=== PATIENT | female | born 1960 | race Caucasian/White ===

== ENCOUNTER → 2021-07-08 10:23 | Outpatient (CLI) | payer OTHER, SELFPAY | PROVIDERS: Visit Provider Nurse Practitioner Family | DX: N34.3 Urethral syndrome, unspecified (principal); N89.8 Other specified noninflammatory disorders of vagina | CPT/HCPCS: 87086; 87210 ==

== ENCOUNTER → 2021-12-18 08:08 | Outpatient (CLI) | payer OTHER, SELFPAY ==
--- NOTE | 2021-12-18 08:10 | DI.US.S_ITS ---
PROCEDURE: US PERIPH VENOUS LOW EXTREM RT INDICATIONS: discoloration, calf pain, h/o fx, r/o DVT TECHNIQUE: Real-time imaging, as well as color and pulse Doppler interrogation, were performed of the lower extremity deep veins from the inguinal ligament to the popliteal fossa. COMPARISON: None. FINDINGS: The common femoral, femoral and popliteal veins are normally compressible, and free of intraluminal thrombus. Color and pulse Doppler demonstrate normal phasic intraluminal flow. There is normal augmentation response to distal compression maneuver. IMPRESSION: No evidence of deep vein thrombosis involving the right lower extremity. Dictated by: Christie Hsu MD, PhD on 12/18/2021 at 9:00 Approved by: Christie Hsu MD, PhD on 12/18/2021 at 9:00
== END ==
PROVIDERS: Referring Provider Physician Assistant; Visit Provider Physician Assistant
DX: S82.141D Displaced bicondylar fracture of right tibia, subsequent encounter for closed fracture with routine healing (principal); M79.661 Pain in right lower leg
CPT/HCPCS: 93971

== ENCOUNTER → 2022-01-15 12:22 | Outpatient (CLI) | payer OTHER, SELFPAY ==
--- NOTE | 2022-01-15 12:24 | DI.RAD.S_ITS ---
PROCEDURE: XR KNEE RT 3V INDICATIONS: fracture f/u TECHNIQUE: 3 views of the knee were acquired. COMPARISON: None. FINDINGS: Bones: No fractures or dislocations. No suspicious bony lesions. Mild tricompartmental periarticular osteophyte formation. Soft tissues: No joint effusion. No suspicious soft tissue calcifications. IMPRESSION: Osteoarthritis. No acute fracture. No osseous lesion. If symptoms and/or clinical suspicion for pathology persist, further assessment with repeat, or advanced imaging (e.g., CT, MRI, or bone scan) may be helpful for further assessment. Dictated by: Rylie Fuentes M.D. on 01/15/2022 at 15:26 Transcribed by: SHAAN on 01/15/2022 at 15:27 Approved by: Rylie Fuentes M.D. on 01/15/2022 at 16:48
== END ==
PROVIDERS: Referring Provider Physician Assistant; Visit Provider Physician Assistant
DX: S89.91XA Unspecified injury of right lower leg, initial encounter (principal); M17.11 Unilateral primary osteoarthritis, right knee; X58.XXXA Exposure to other specified factors, initial encounter
CPT/HCPCS: 73562

== ENCOUNTER → 2022-08-22 09:05 | Outpatient (CLI) | payer OTHER, SELFPAY ==
--- NOTE | 2022-08-22 09:08 | DI.RAD.S_ITS ---
PROCEDURE: XR ANKLE RT MIN 3V INDICATIONS: ankle pain TECHNIQUE: 3 views of the ankle were acquired. COMPARISON: None. FINDINGS: Bones: No fractures or dislocations. Ankle mortise is normally aligned. No suspicious bony lesions. Moderate periarticular osteophyte formation at the tibiotalar joint. Soft tissues: No tibiotalar joint effusion. Achilles tendon appears normal. IMPRESSION: 1. Osteoarthritis. 2. No acute fracture. No osseous lesion. If symptoms and/or clinical suspicion for pathology persist, further assessment with repeat, or advanced imaging (e.g., CT, MRI, or bone scan) may be helpful for further assessment. Dictated by: Rylie Fuentes M.D. on 08/22/2022 at 10:40 Transcribed by: SHAAN on 08/22/2022 at 10:40 Approved by: Rylie Fuentes M.D. on 08/22/2022 at 16:21
[2022-08-22 10:11] LABS: Add Manual Diff / Slide Review NO; Basophils Absolute Auto 100 /uL (0-100); Eosinophils Absolute Auto 200 /uL (0-450); Eosinophils Percent Auto 3.8 % (2-4); Hematocrit 38.3 % (36-46); Hemoglobin 13.2 g/dL (12.0-16.0); Lymphocytes Absolute Auto 1200 /uL (1100-4500); Lymphocytes Percent Auto 18.6 % (25-40); Mean Corpuscular HGB Conc 34.5 % (30-36); Monocytes Absolute Auto 400 /uL (0-900); Monocytes Percent Auto 6.6 % (3-14); Neutrophils Absolute Auto 4500 /uL (1500-7000); Platelet Count 206 X10^3/uL (150-400); White Blood Cell Count 6.4 X10^3/uL (4.5-11.0)
[2022-08-22 10:19] LABS: Hemoglobin A1C% w Est Avg Glu 7.2 % (4.0-6.0)
[2022-08-22 10:53] LABS: Alanine Aminotransferase 42 IU/L (<35); Albumin 3.9 g/dL (3.5-5.0); Albumin Globulin Ratio 1.4 (1.0-2.8); Alkaline Phosphatase 81 U/L (38-126); Aspartate Aminotransferase 29 IU/L (14-36); BUN Creatinine Ratio 31.3 (6-22); Bilirubin Total 0.3 mg/dL (0.2-1.3); Blood Urea Nitrogen 21 mg/dL (7-17); Calcium 9.2 mg/dL (8.4-10.2); Carbon Dioxide 25 mmol/L (22-32); Chloride 104 mmol/L (98-107); Cholesterol 169 mg/dL (140-199); Estimated Glomerular Filt Rate > 60 mL/min (>60); Globulin 2.7 g/dL (1.7-4.1); Glucose 169 mg/dL (80-110); HDL Cholesterol 49 mg/dL (40-60); HEMOLYSIS < 15 (0-50); LDL Cholesterol Calculated 96 mg/dL (<100); Potassium 4.6 mmol/L (3.4-5.1); Sodium 137 mmol/L (137-145); Total Protein 6.6 g/dL (6.3-8.2); Triglycerides 118 mg/dL (35-150)
[2022-08-22 10:56] LABS: Creatinine Urine Random 112.9 mg/dL
[2022-08-22 11:05] LABS: Microalbumi Creatinin Ratio Ur 5.3 ug/mg CR (<30); Microalbumin Urine Random 0.6 mg/dL (0-1.6)
[2022-08-22 11:17] LABS: TSH w/ Reflex to FT4 1.84 uIU/mL (0.47-4.68)
== END ==
PROVIDERS: PCP Family Medicine; Referring Provider Family Medicine; Visit Provider Family Medicine
DX: M19.071 Primary osteoarthritis, right ankle and foot (principal); M25.571 Pain in right ankle and joints of right foot; E11.8 Type 2 diabetes mellitus with unspecified complications
CPT/HCPCS: 36415; 73610; 80053; 80061; 82043; 82570; 83036; 84443; 85025

== ENCOUNTER → 2022-10-09 10:35 | Outpatient (CLI) | payer OTHER, SELFPAY | PROVIDERS: PCP Family Medicine; Visit Provider Nurse Practitioner Family | DX: J02.9 Acute pharyngitis, unspecified (principal) | CPT/HCPCS: 87070; 87077; 87147 ==

== ENCOUNTER → 2022-10-16 18:02 | Outpatient (CLI) | payer OTHER, SELFPAY | PROVIDERS: PCP Family Medicine; Visit Provider Student in an Organized Health Care Education/Training Program | DX: R30.0 Dysuria (principal) | CPT/HCPCS: 87086; 87210 ==

== ENCOUNTER → 2023-01-29 12:34 | Outpatient (CLI) | payer OTHER, SELFPAY ==
--- NOTE | 2023-01-29 12:35 | DI.MG.S_ITS ---
BILATERAL DIGITAL SCREENING MAMMOGRAM 3D/2D WITH CAD: 01/29/2023 CLINICAL: Baseline exam. Routine screening. No prior exams were available for comparison. There are scattered areas of fibroglandular density in both breasts (category b / 25%-50% glandular tissue). Current study was also evaluated with a Computer Aided Detection (CAD) system. No significant masses, calcifications, or other findings are seen in either breast. IMPRESSION: NEGATIVE There is no mammographic evidence of malignancy. A 1 year screening mammogram is recommended. Based on the Tyrer Cuzick model (a risk assessment model) the patient's lifetime risk is 7.1% and her 10 year risk is 3.2%. According to the ACR, ACS, and NCCN guidelines, an annual breast MRI exam along with mammogram is recommended if the patient's lifetime risk is 20% or greater. This exam was interpreted at Station ID: [id number]. NOTE: For mammograms, a report in lay terms will be sent to the patient. Approximately 15% of breast malignancies will not be visualized mammographically. In the management of a palpable breast mass, a negative mammogram must not discourage biopsy of a clinically suspicious lesion. Electronically Signed By: Leni lewis/ghassan:01/29/2023 14:45:38 letter sent: Normal Exam ACR BI-RADS Category 1: Negative [id number]
== END ==
PROVIDERS: PCP Registered Nurse; Referring Provider Physician Assistant; Visit Provider Physician Assistant
DX: Z12.31 Encounter for screening mammogram for malignant neoplasm of breast (principal)
CPT/HCPCS: 77063; 77067

== ENCOUNTER → 2023-07-29 14:49 | Outpatient (CLI) | payer OTHER, SELFPAY ==
[2023-07-29 15:37] LABS: Influenza A - CEPHEID Flu A NEGATIVE (NEGATIVE); Influenza B - CEPHEID Flu B NEGATIVE (NEGATIVE); Respiratory Syncytial Virus Negative (Negative)
[2023-07-29 15:40] LABS: COVID-19 CEPHEID 4-PLEX PCR Negative (Negative)
== END ==
PROVIDERS: PCP Registered Nurse; Visit Provider Nurse Practitioner Family
DX: J02.9 Acute pharyngitis, unspecified (principal); R05.9 Cough, unspecified
CPT/HCPCS: 0241U; 87070; 87147

== ENCOUNTER → 2024-07-06 11:11 | Outpatient (ROUT) | payer OTHER, SELFPAY ==
[2024-07-06 11:54] LABS: COVID-19 CEPHEID 4-PLEX PCR Negative (Negative); Influenza A - CEPHEID Flu A NEGATIVE (NEGATIVE); Influenza B - CEPHEID Flu B NEGATIVE (NEGATIVE); Respiratory Syncytial Virus Negative (Negative)
== END ==
PROVIDERS: PCP Family Medicine; Visit Provider Family Medicine
DX: R50.9 Fever, unspecified (principal); R05.1 Acute cough
CPT/HCPCS: 0241U

== ENCOUNTER → 2024-07-20 15:45 | Outpatient (CLI) | payer OTHER, SELFPAY ==
--- NOTE | 2024-07-20 16:08 | DIAB.MNT ---
Initial Diabetes Medical Nutrition Therapy Assessment Name: Noreen Smith Date: 07/20/24 Time: 405-5 Dx: Type II Diabetes Provider: Vance Noreen presents for initial DM visit. PMH of DM since 2011. FH of DM with father, both sisters. Sisters with macular degeneration. UTD eye appt. No previous MNT or DM education. Per provider notes, Noreen is trying to avoid additional DM meds. Insurance will not cover Semaglutide, does not want to try other meds. Wants to work on lifestyle. Notable in EMR 2010 pancreatitis. Gained wt around age 50 via emotional eating per report. Trying to take Metformin, but is really impacting GI-- diarrhea every other day. Taking Metformin BID since 06/23/24. Has h/o 30# loss during 2020 with lifestyle changes. Main goals in our visit is nutrition. How many carbs are recommended? Label reading, what foods impact BG? Loves veggies and lean proteins. Loves plant proteins. 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 Diet Recall: 745a: pb toast OR pb celery or just pb 12p: left overs OR pb sandwich and cucumbers OR soup 530-9p: steak and potato with veg OR meat with veg OR quinoa x >1c and veggies, cheese and protein sn: nothing OR leftovers OR 1 bag popcorn water 25-30oz in evening, more durin gth eday herbal tea with sugar and honey 3-4x per week summer has iced tea with hney and raw sugar When eating out [employer] orders coke rare wine Anthropometrics: Ht: 68 Wt: 257# reported Physical Activity: Walking on nice weather days. More active in summer with hiking and walking. 2 years ago fx leg and knee injury, so worried about hiking. Wants to find activity in the winter to do. Use to enjoy yoga. Getting in August and plans to have home gym with alisa. Self-Monitoring Blood Glucose: Not currently. Interested. Diabetes Medications: 500mg Metformin XR BID Pertinent Labs: 05/2024 HGA1c: 9.5% T LDL 100 Past Medical History: (Last Reviewed 10/16/22 @ 18:27 by Lynette Renae PA-C) Actinic keratosis (~2014) Allergies (~2001) Ankle pain (~2021) Depression (~2021) Elbow pain (~2021) Foot pain (~2021) Fractures (~2021) Hemorrhoid (~2021) Pancreatitis (~2010) Plantar warts Psoriasis Restless leg syndrome Rosacea Shoulder pain (~2021) Sleep apnea Type 2 diabetes mellitus with complication, without long-term current use of insulin (~2013) Nutrition Rx: Carbohydrates: Meal:30-15g Snack:15-30g Nutrition Diagnosis: - Nutrition and food related knowledge deficit r/t no previous MNT aeb pt report - Physical inactivity r/t stage of change preparation aeb pt report - Undesireable food choices r/t sugar beverages aeb diet recall Intervention: This participant was very receptive. Provided appropriate educational handouts. Discussed the following topics: Completed intake assessment. Discussed barriers to care. Importance of self-monitoring, how often, and when to check. Suggested checking at different times to evaluate meals Plate Method, impact of macronutrients on blood sugar, meal timing, carbohydrate counting, pairing macronutrients and spreading out carbohydrates for better blood glucose management Recommended servings for carbohydrates at meals and snacks Heart health nutrition: fats and sodium Brainstormed appropriate meal plan based on food preferences Role of physical activity Label reading for carbs and saturated fat Created SMART goals for patient self-care and success. Goals: Ask PCP for meter and supplies rx Pair CHO and protein Cut out sugar in tea Start some kind of physical activity safely If having CHO at a meal, keep to 1c or less Follow-up: KIKO ZURITA follow-up in 3-4 weeks Yancy Boothe RDN, PARMINDER Certified Diabetes Care and Product Scientist P: [phone] Thank you for this referral
== END ==
LOC: DIET 15:45
PROVIDERS: PCP Family Medicine; Referring Provider Family Medicine
DX: E11.9 Type 2 diabetes mellitus without complications (principal); R19.7 Diarrhea, unspecified; Z83.3 Family history of diabetes mellitus; Z71.3 Dietary counseling and surveillance; Z79.84 Long term (current) use of oral hypoglycemic drugs
CPT/HCPCS: 97802

== ENCOUNTER → 2024-08-19 15:49 | Outpatient (CLI) | payer OTHER, SELFPAY ==
--- NOTE | 2024-08-19 15:50 | DIAB.MNTFU ---
Follow-up Diabetes Medical Nutrition Therapy Assessment Name: Noreen Smith Date: 08/19/24 Time: 4445 Dx: Type II Diabetes Provider: Vance Noreen presents for follow-up DM visit virtually using [facility]. PMH of DM since 2011. FH of DM with father, both sisters. Sisters with macular degeneration. UTD eye appt. No previous MNT or DM education. Per provider notes, Noreen is trying to avoid additional DM meds. Insurance will not cover Semaglutide, does not want to try other meds. Wants to work on lifestyle. Notable in EMR 2010 pancreatitis. Taking Metformin BID. GI upset has improved. States she has been trying to pair macros and reading labels for net carbs. Reports some wt gain since last visit. States she feels frustrated. Eating out more. Stress. Getting two weeks. Stress eating includes cookies, 2 bags popcorn, pb. Grazing in the evenings. States non-food stress management includes women's mu-ism meeting and reading the bible. Trying protein shake 1-2x -- premier protein but having some constipation with it veggies, berries, nuts, apple, protein powder-- Use to make this shake Diet Recall: 745a: protein shake or spoonfull pb 1130a: apple and pb OR left overs 530-6p: eating out steak and potato with veg OR meat with veg OR quinoa x >1c and veggies, cheese and protein sn: apple and pb OR rice cake and pb OR 2 bags popcorn OR lettuce cup with tuna OR grazing water 25-30oz in evening, more during the day herbal tea with less sugar and honey 3-4x per week summer has iced tea with honey and raw sugar When eating out [employer] food orders coke rare wine Anthropometrics: Ht: 68 Wt: none today 257# 06/2024 Physical Activity: Walking some nights with fiance dogs, about 3-4x per week. Self-Monitoring Blood Glucose: Not currently. Interested. Plans to ask PCP for supplies. Diabetes Medications: 500mg Metformin XR BID Pertinent Labs: 05/2024 HGA1c: 9.5% T LDL 100 Past Medical History: (Last Reviewed 10/16/22 @ 18:27 by Lynette Renae PA-C) Actinic keratosis (~2014) Allergies (~2001) Ankle pain (~2021) Depression (~2021) Elbow pain (~2021) Foot pain (~2021) Fractures (~2021) Hemorrhoid (~2021) Pancreatitis (~2010) Plantar warts Psoriasis 1989' Restless leg syndrome Rosacea Shoulder pain (~2021) Sleep apnea Type 2 diabetes mellitus with complication, without long-term current use of insulin (~2013) Nutrition Rx: Carbohydrates: Meal:30-15g Snack:15-30g Nutrition Diagnosis: - Nutrition and food related knowledge deficit r/t no previous MNT aeb pt report - in progress - Physical inactivity r/t stage of change preparation aeb pt report- in progress - Undesireable food choices r/t sugar beverages aeb diet recall- in progress - Self monitoring deficit r/t no supplies aeb pt report - new Intervention: This participant was very receptive. Provided appropriate educational handouts. Discussed the following topics: BG checks, goals and when to check Label reading Stress management Setting snack time and meal/snack timing Meal/snack ideas Constipation MNT Created SMART goals for patient self-care and success. Goals: Ask PCP for meter and supplies rx-- in progress Pair CHO and protein - met Cut out sugar in tea- improved Start some kind of physical activity safely- met If having CHO at a meal, keep to 1c or less- in progress Message PCP for meter and supplies- continue Try shake with fruit or veg 1-2x per day -new Set HS snack time- new Follow-up: KIKO ZURITA follow-up in 3-4 weeks. PCP 4/2 appt reported. Yancy Boothe RDN, PARMINDER Certified Diabetes Care and Internal Controls Specialist P: [phone] Thank you for this referral
== END ==
PROVIDERS: PCP Family Medicine; Referring Provider Family Medicine
DX: E11.9 Type 2 diabetes mellitus without complications (principal); Z71.3 Dietary counseling and surveillance; Z83.3 Family history of diabetes mellitus; Z79.84 Long term (current) use of oral hypoglycemic drugs
CPT/HCPCS: 97803

== ENCOUNTER → 2024-08-22 17:43 | Outpatient (CLI) | payer OTHER, SELFPAY ==
--- NOTE | 2024-08-22 17:44 | DI.MG.S_ITS ---
MM screening mammo BI: 08/22/2024. BI-RADS: 1 CLINICAL: 64-year old female for bilateral screening mammogram. Tyrer-Cuzick lifetime risk of 7.5%. No personal or first-degree family history of breast cancer. PRIOR EXAMS 01/29/2023. MAMMOGRAPHY TECHNIQUE: 2D and 3D (tomosynthesis) digital mammographic views obtained, with additional images as needed for full coverage. Current study was also evaluated with a Computer Aided Detection (CAD) system. DENSITY B. There are scattered areas of fibroglandular density. MAMMOGRAPHY FINDINGS Bilateral: No suspicious mass, asymmetry, microcalcification, or other abnormality seen. IMPRESSION: * No evidence of malignancy. RECOMMENDATIONS Bilateral * Annual screening mammography. OVERALL ASSESSMENT CATEGORY BI-RADS-1: Negative. The [employer] recommends annual screening mammography beginning at age 40 for women with average risk of breast cancer. ELECTRONICALLY SIGNED: John Peacock M.D. on 08/23/2024 at 11:59:12 AM Interpreting Station ID: [id number]
== END ==
LOC: MAMMO 17:44
PROVIDERS: PCP Family Medicine; Referring Provider Family Medicine; Visit Provider Family Medicine
DX: Z12.31 Encounter for screening mammogram for malignant neoplasm of breast (principal)
CPT/HCPCS: 77063; 77067

== ENCOUNTER → 2024-08-29 09:31 | Outpatient (CLI) | payer OTHER, SELFPAY ==
[2024-08-29 10:57] LABS: Influenza A - CEPHEID Flu A NEGATIVE (NEGATIVE); Influenza B - CEPHEID Flu B NEGATIVE (NEGATIVE); Respiratory Syncytial Virus Negative (Negative)
[2024-08-29 11:04] LABS: COVID-19 CEPHEID 4-PLEX PCR Negative (Negative)
== END ==
PROVIDERS: PCP Family Medicine; Visit Provider Nurse Practitioner Family
DX: R50.9 Fever, unspecified (principal)
CPT/HCPCS: 0241U

== ENCOUNTER 2024-11-23 11:17 | Day surgery (SDC) | payer OTHER, SELFPAY ==
[2024-11-17 07:29] VITALS: BMI 37.2
--- NOTE | 2024-11-23 | PATH_ITS ---
[facility] Accession Number: [id number] No. of containers..01 Tissue . 01 Material submitted: . anal skin - ANAL LESION . 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 [facility] 11/30/2024 1320 Local . 01 Comment: P16 stain shows stong and diffuse staining. Tangential tissue embedding somewhat complicates evaluation for an invasive component. No definite invasive squamous cell carcinoma is identified however. If this represents a partial sampling of a larger lesion, the findings may not be entirely event representative of the lesion as a whole. . . This case has been reviewed by Drs. Jorge Davenport and Joy Archuleta who agree with the above diagnosis. . 01 Electronically signed: . Abdulaziz Castro MD, Dermatopathologist NPI- [id number] . 01 Gross description: . Received in formalin with two identifiers and anal lesion, are two gan fragments of presumed skin measuring 0.8 x 0.5 x 0.3 cm and 0.7 x 0.7 x 0.3 cm. The margins are differentially inked, the fragments are sectioned and submitted entirely in A1. ([id number]) /MRV 11/25/2024 1423 Local . 01 Pathologist provided ICD-10: D04.9 . 01 CPT . 991655, [id number] Specimen Comment: A courtesy copy of this report has been sent to [phone] Performed at: [address] [address], [place], [place] [id number] MD Jordon Browne MD Phone: [phone]
[2024-11-23 11:39] VITALS: BP 140/75; PULSE 77; RESP 16; TEMP 36.8; O2SAT 96; BMI 37.2
[2024-11-23] MEDS: LACTATED RINGERS 1,000 ML 42 ML IV (12:06)
--- NOTE | 2024-11-23 12:13 | PM.PREOP ---
Pre-operative Note COVID-19 COVID-19 status: Not tested Interval Note History & Physical reviewed/Exam performed by Physician: Yes Changes to H&P: No ASA Class (for procedural sedation): II
--- NOTE | 2024-11-23 12:57 | SUR.OPER ---
Lithotomy on padded OR bed, head on pillow, arms secured on padded arm boards at <90 degrees abduction. Legs secured in padded yellow fins stirrups.
[2024-11-23] MEDS: BUPIVACAINE 0.5% W/ EPI (PF) 30 ML VIAL INJ (13:02)
--- NOTE | 2024-11-23 13:16 | PM.OP.1 ---
Operative Date/Time/Diagnoses Date of procedure: 11/23/24 Time of procedure: 13:16 Pre-op diagnosis: Perianal lesion Post-op diagnosis: same Procedure & Clinicians Procedure: Incisional biopsy of perianal lesion Same procedure as scheduled: Yes Surgeon: Brian Oliveira Arts [employer] Crafts Teacher: Luigi Cobb Anesthesia Type: General Operative Notes Findings: 3 cm x 4 cm area of erythematous, raised, variegated tissue Estimated Blood Loss (mL): 5 Procedure in detail: The patient was brought to the operating room and general anesthesia was induced. She was positioned in lithotomy. The perineum was prepped and draped in the usual fashion. A time-out was performed. Inspection demonstrated a 3 cm x 4 cm area of erythematous, raised, variegated tissue in the left lateral location concerning for anal cancer. A digital rectal exam was performed with a well lubricated finger. There were no palpable masses beyond the visible perianal lesion. A well lubricated small Hill-Martinez retractor was inserted into the anus. The lesion extended to the dentate line and occupied approximately 40% of the circumference of the perianal tissue distal to the dentate line. Marcaine with epinephrine was injected into the skin distal to the lesion as well as into the mucosa above the dentate line. 1 cm x 5 mm ellipse of tissue was excised sharply from the central portion of the lesion. There was also a protuberant nodule of tissue near the dentate line which was excised sharply. A small amount of cautery was used for hemostasis. The tissue was sent together as ?perianal lesion. EBL: 5 mL Specimen: Perianal lesion Luigi WALDRON provided assistance with exposure, retraction and closure of incisions. Complications: none
[2024-11-23 13:22] VITALS: BP 137/59; PULSE 76; RESP 21; TEMP 36.6; O2SAT 97
[2024-11-23 13:27] VITALS: BP 140/65; PULSE 76; RESP 11; TEMP 36.6; O2SAT 96
[2024-11-23 13:33] VITALS: BP 142/66; PULSE 76; RESP 11; TEMP 36.6; O2SAT 95
[2024-11-23 13:41] VITALS: BP 136/68; PULSE 70; RESP 15; TEMP 36.4; O2SAT 95
== END 2024-11-23 14:28 | disposition home or self-care (01) ==
PROVIDERS: PCP Family Medicine; Referring Provider Surgery; Visit Provider Surgery
PROC: (CPT 45990; principal; 2024-11-23 12:45)
DX: K62.9 Disease of anus and rectum, unspecified (principal); D01.3 Carcinoma in situ of anus and anal canal
CPT/HCPCS: 46922; 82962; J1100; J1885; J2250; J2405; J2704; J3010

== ENCOUNTER 2024-12-15 07:00 | Day surgery (SDC) | payer OTHER, SELFPAY ==
[2024-12-15 07:17] VITALS: BP 156/81; PULSE 90; RESP 16; TEMP 36.5; O2SAT 97
[2024-12-15 07:24] LABS: POC Glucose 137 mg/dL (70-99)
[2024-12-15] MEDS: LACTATED RINGERS 1,000 ML 42 ML IV (07:26)
--- NOTE | 2024-12-15 08:12 | PM.HP.IH.1 ---
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 She has had a visit with Dr. El of medical oncology. She has a never had a colonoscopy before. See the prior op note and office notes for details. [facility] Medical History Actinic keratosis (~2014) Allergies (~2001) Ankle pain (~2021) Depression (~2021) Elbow pain (~2021) Foot pain (~2021) Fractures (~2021) Hemorrhoid (~2021) Pancreatitis (~2010) Plantar warts Psoriasis Restless leg syndrome Rosacea Shoulder pain (~2021) Sleep apnea Type 2 diabetes mellitus with complication, without long-term current use of insulin (~2013) Surgical History Anesthesia H/O right knee surgery (~2013) History of cholecystectomy (~2010) Family History Mother Alzheimer's disease Sister Diabetes mellitus Hyperlipidemia Hypertension Sister Cancer Diabetes mellitus Hypertension Hyperlipidemia Social History household members: spouse Smoking Status: Never smoker alcohol intake: current Meds Home Medications and Allergies Home Medications ?Medication ?Instructions ?Recorded ?Confirmed ?Type lisinopril 10 mg tablet 10 mg PO DAILY 08/29/24 12/15/24 History metformin 500 mg tablet,extended 1,000 mg PO BID 08/29/24 12/15/24 History release 24 hr Allergies Allergy/AdvReac Type Severity Reaction Status Date / Time No Known Drug Allergies Allergy Verified 12/15/24 07:16 Exam Vital Signs (past 8 hours): - 12/15/24 07:17 Temperature 97.7 F Pulse Rate 90 Respiratory Rate 16 Blood Pressure 156/81 H Pulse Oximetry 97 Oxygen Delivery Method Room Air Oxygen Delivery Method Room Air Const General: No acute distress Objective Labs Labs: Laboratory Results - last 24 hr 12/15/24 07:22 POC Whole Bld Glucose 137 H Assessment & Plan Assessment and plan (1) 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 PROFEE Stock Preparer Document charge(s): No
--- NOTE | 2024-12-15 08:58 | PM.OP.COLON ---
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 Procedure: The patient was brought to the endoscopy suite, placed in left lateral decubitus position. The patient was connected to monitoring devices. A time-out was performed. Sedation was administered. Once the patient was adequately sedated, a digital rectal exam was performed. The known squamous cell carcinoma in-situ was observed in the anus external to the dentate line. The scope was then inserted and advanced to the cecum where the appendiceal orifice was identified and photographed. The scope was then slowly withdrawn over greater than 6 minutes. The mucosa was thoroughly inspected. No abnormalities were found. The scope was retroflexed in the rectum. No portion of the squamous cell carcinoma in-situ lesion was visible from within the rectum. The scope was straightened and slowly withdrawn through the anal canal. There was no evidence of the lesion extending proximal to the dentate line. The patient was awakened and brought to recovery. Scope withdrawal time: 6 minutes Sedation time: 25 minutes EBL: 0 Findings: Squamous cell carcinoma in-situ external to the dentate line Post-procedure Disposition: PACU
[2024-12-15 08:59] VITALS: BP 139/76; PULSE 76; RESP 14; TEMP 36.8; O2SAT 97
[2024-12-15 09:04] VITALS: BP 150/74; PULSE 74; RESP 16; O2SAT 96
[2024-12-15 09:09] VITALS: BP 121/95; PULSE 72; RESP 16; TEMP 36.8; O2SAT 97
[2024-12-15 09:14] VITALS: BP 140/84; PULSE 71; RESP 16; O2SAT 96
== END 2024-12-15 09:30 | disposition home or self-care (01) ==
PROVIDERS: PCP Family Medicine; Referring Provider Surgery; Visit Provider Surgery
PROC: 0DJD8ZZ Inspection of Lower Intestinal Tract, Via Natural or Artificial Opening Endoscopic (ICD-10-PCS; CPT 45378; principal; 2024-12-15 08:15)
DX: D01.3 Carcinoma in situ of anus and anal canal (principal)
CPT/HCPCS: 45378; 82962; J2250; J2704

== ENCOUNTER → 2025-03-29 13:46 | Outpatient (CLI) | payer OTHER, SELFPAY ==
--- NOTE | 2025-03-29 13:47 | DI.RAD.S_ITS ---
PROCEDURE: XR DEXA AXIAL SKELETON INDICATIONS: Postmenopausal Screening for osteoporosis COMPARISON: None. FINDINGS: Lumbar Spine: Bone mineral density 0.939 g/cm2, T score -0.9, Z-score 0.9, normal. Left Femoral Neck: Bone mineral density 0.830 g/cm2, T score -0.2, Z-score 1.3, normal. Left Hip: Bone mineral density 1.056 g/cm2, T score 0.9, Z-score 2.2, normal. Fracture Risk Calculation (when applicable): 10-year fracture risk of a major osteoporotic fracture 6.3 percent and of a hip fracture 0.2 percent. (T score greater or equal to -1.0 to: NORMAL) (T score from -1.1 to -2.4: OSTEOPENIA) (T score less than or equal to -2.5: OSTEOPOROSIS) IMPRESSION: Normal. Follow-up guidelines as follows: Osteoporosis: Consider a repeat DEXA and Vertebral Fracture Assessment (VFA) exam in 2 years or sooner if medically necessary, to reassess this patient's status. Osteopenia: Consider a repeat DEXA in 2-3 years to reassess this patient's status, or if there is a new clinical indication. Normal: Consider a repeat DEXA in 5 years or sooner, or if there is a new clinical indication. All treatment decisions require clinical judgment and consideration of individual patient factors, including patient preferences, comorbidities, previous drug use, risk factors not captured in the FRAX model (e.g., frailty, falls, vitamin D deficiency, increased bone turnover, interval significant decline in bone density ) and possible under- or over-estimation of fracture risk by FRAX. In addition, the NOF Guide recommends that FDA-approved medical therapies be considered in postmenopausal women and men age >= 50 years with a: * Hip or vertebral (clinical or morphometric) fracture * T-score of <=-2.5 at the spine or hip * Ten-year fracture probability by FRAX of >= 3% for hip fracture or >=20% for major osteoporotic fracture. Dictated by: Sunday Reid M.D. on 03/30/2025 at 13:26 Approved by: Sunday Reid M.D. on 03/30/2025 at 13:29
== END ==
PROVIDERS: PCP Family Medicine; Referring Provider Family Medicine; Visit Provider Family Medicine
DX: Z78.0 Asymptomatic menopausal state (principal)
CPT/HCPCS: 77080